=== PATIENT | male | born 1980 ===

== ENCOUNTER 2017-06-11 19:08 | Emergency (ER) | payer OTHER ==
[2017-06-11 19:27] VITALS: BP 111/58; PULSE 87; RESP 18; TEMP 101.9; O2SAT 98
--- NOTE | 2017-06-11 21:07 | ED PDOC ---
HPI: Fever Fever Onset Was: 06/11/17 (x1 day) Additional Comments: 36 year old male presents to the emergency department complaining of fever for one day. Patient also complains of sore throat, mild cough, body aches, and an associated headache. Denies chest pain, difficulty breathing, vomiting or diarrhea. PMD: Dr. Campos Santana Past Medical History Reviewed: Historical Data, Nursing Documentation, Vital Signs Vital Signs: Last Vital Signs Temp 101.9 F H 06/11/17 21:17 Pulse 87 06/11/17 19:24 Resp 18 06/11/17 19:24 BP 111/58 L 06/11/17 19:24 Pulse Ox 98 06/11/17 23:40 - Medical History PMH: No Chronic Diseases - Surgical History Surgical History: No Surg Hx - Family History Family History: States: No Known Family Hx - Social History Current smoker - smoking cessation education provided: No Alcohol: None Drugs: Denies - Home Medications Home Medications: Ambulatory Orders Medication Instructions Recorded Tobramycin [Tobrex] 5 ml TOP QID #1 bottle 04/16/16 Azithromycin [Z-Kale] 250 mg PO ASDIR #6 tab 06/11/17 - Allergies Allergies/Adverse Reactions: Allergies Allergy/AdvReac Type Severity Reaction Status Date / Time No Known Allergies Allergy Verified 04/16/16 17:21 Review of Systems ROS Statement: Except As Marked, All Systems Reviewed And Found Negative Constitutional: Positive for: Fever, Other (body aches) ENT: Positive for: Throat Pain Cardiovascular: Negative for: Chest Pain Respiratory: Positive for: Cough (mild). Negative for: Shortness of Breath Gastrointestinal: Negative for: Vomiting, Diarrhea Neurological: Positive for: Headache Physical Exam - Reviewed Nursing Documentation Reviewed: Yes Vital Signs Reviewed: Yes - Physical Exam Appears: Positive for: Well, Non-toxic, No Acute Distress Head Exam: Positive for: ATRAUMATIC, NORMAL INSPECTION, NORMOCEPHALIC Skin: Positive for: Normal Color, Warm, Dry. Negative for: Rash Eye Exam: Positive for: EOMI, Normal appearance, PERRL ENT: Positive for: Other (Erythema of tonsils ) Neck: Positive for: Normal, Painless ROM, Supple (no lymphadenopathy) Cardiovascular/Chest: Positive for: Regular Rate, Rhythm. Negative for: Murmur Respiratory: Positive for: Normal Breath Sounds. Negative for: Accessory Muscle Use, Respiratory Distress Gastrointestinal/Abdominal: Positive for: Normal Exam, Bowel Sounds, Soft. Negative for: Tenderness Back: Positive for: Normal Inspection. Negative for: Vertebral Tenderness, Decreased ROM Extremity: Positive for: Normal ROM. Negative for: Pedal Edema, Calf Tenderness Neurologic/Psych: Positive for: Alert, Oriented - ECG O2 Sat by Pulse Oximetry: 98 (RA) Pulse Ox Interpretation: Normal Medical Decision Making Medical Decision Making: Impression: Fever and tonsillitis Differential: Possible strep, influenza Time: 20:57 Initial Plan: --Toradol 15 mg IM --Tylenol 650 mg PO --Influenza A B --Rapid Strep --Throat culture --Reevaluation Time: 21:22 Lab Results Reviewed: Negative for flu and strep Time: :54 Ordered chest x-ray and urine dip. Scribe Attestation: Documented by Kia Jaramillo, acting as a scribe for Oscar Shelton MD Provider Scribe Attestation: All medical record entries made by the Scribe were at my direction and personally dictated by me. I have reviewed the chart and agree that the record accurately reflects my personal performance of the history, physical exam, medical decision making, and the department course for this patient. I have also personally directed, reviewed, and agree with the discharge instructions and disposition. Disposition - Clinical Impression Clinical Impression: Fever in adult, Influenza-like symptoms, Pneumonia - Patient ED Disposition Is Patient to be Admitted: No Doctor Will See Patient In The: Office Counseled Patient/Family Regarding: Studies Performed, Diagnosis, Need For Followup - Disposition Referrals: [facility] [Outside] Disposition: Routine/Home Disposition Time: 23:41 Condition: GOOD Additional Instructions: Take your medications as instructed. Follow up with your PCP in 2-3 days. Prescriptions: Azithromycin [Z-Kale] 250 mg PO ASDIR #6 tab Instructions: Community Acquired Pneumonia (ED) Curb-65 Severity Score - CURB-65 Severity Score Confusion: No Bun >19mg/dl (>7mmol/L): No Respiratory Rate greater than/equal to 30: No Systolic BP <90 or Diastolic BP less than/equal 60mmHg: No Age >64: No Curb-65 Score: 0 Percentage 30-day mortality: 0.6%
--- NOTE | 2017-06-12 08:52 | RAD ---
HISTORY: fever cough COMPARISON: Portable chest 04/02/2015. TECHNIQUE: Chest PA and lateral FINDINGS: LUNGS: Interval trace patchy density is question at the right lower lobe suspicious for interval no bony or possible atelectasis. Remaining lung langford are clear otherwise, bilaterally. PLEURA: No significant pleural effusion identified. No pneumothorax apparent. CARDIOVASCULAR: Normal. OSSEOUS STRUCTURES: No significant abnormalities. VISUALIZED UPPER ABDOMEN: Normal. OTHER FINDINGS: None. IMPRESSION: Borderline right lower lobe infiltrate.
== END 2017-06-12 00:15 | disposition home or self-care (01) ==
LOC: H.ER 19:08
DX: J18.9 Pneumonia, unspecified organism (principal)
CPT/HCPCS: 71046; 87070; 87430; 87804; 96372; 99282; J1885

== ENCOUNTER 2017-07-28 17:45 | Emergency (ER) | payer OTHER ==
[2017-07-28 17:52] VITALS: BP 126/75; PULSE 69; RESP 16; TEMP 97.3; O2SAT 99
--- NOTE | 2017-07-28 19:54 | ED PDOC ---
Lower Extremity Pain/Injury Time Seen by Provider: 07/28/17 18:14 Chief Complaint (Nursing): Lower Extremity Problem/Injury Chief Complaint (Provider): Right toe injury History Per: Patient History/Exam Limitations: no limitations Onset/Duration Of Symptoms: Hrs (today) Current Symptoms Are (Timing): Still Present Additional Complaint(s): Maxwell Sellers is a 36 year old male, with no significant past medical history, who presents to the emergency department for a right great toe injury onset today. Patient reports a headboard fell on his right great toe. He denies any other injuries or medical complaints. Pt states that after taking motrin the pain is improved. PMD: Campos Santana Past Medical History Reviewed: Historical Data, Nursing Documentation, Vital Signs Vital Signs: Last Vital Signs Temp 97.3 F L 07/28/17 17:50 Pulse 69 07/28/17 17:50 Resp 16 07/28/17 17:50 BP 126/75 07/28/17 17:50 Pulse Ox 99 07/28/17 17:50 - Medical History PMH: No Chronic Diseases - Surgical History Surgical History: No Surg Hx - Family History Family History: States: Unknown Family Hx - Social History Current smoker - smoking cessation education provided: No Alcohol: None Drugs: Denies - Home Medications Home Medications: Ambulatory Orders Medication Instructions Recorded Tobramycin [Tobrex] 5 ml TOP QID #1 bottle 04/16/16 Azithromycin [Z-Kale] 250 mg PO ASDIR #6 tab 06/11/17 traMADol [Ultram] 50 mg PO Q6H PRN #15 tab 07/28/17 - Allergies Allergies/Adverse Reactions: Allergies Allergy/AdvReac Type Severity Reaction Status Date / Time No Known Allergies Allergy Verified 04/16/16 17:21 Review of Systems ROS Statement: Except As Marked, All Systems Reviewed And Found Negative Musculoskeletal: Positive for: Foot Pain (right great toe) Physical Exam - Reviewed Nursing Documentation Reviewed: Yes Vital Signs Reviewed: Yes - Physical Exam Appears: Positive for: Well, Non-toxic, No Acute Distress Head Exam: Positive for: ATRAUMATIC, NORMAL INSPECTION, NORMOCEPHALIC Skin: Positive for: Normal Color, Warm, Dry Eye Exam: Positive for: Normal appearance Neck: Positive for: Painless ROM Respiratory: Negative for: Respiratory Distress Extremity: Positive for: Tenderness (to right great toe distally with ecchymosis. ). Negative for: Pedal Edema, Calf Tenderness, Deformity, Swelling Neurologic/Psych: Positive for: Alert, Oriented - ECG O2 Sat by Pulse Oximetry: 99 (RA) Pulse Ox Interpretation: Normal Medical Decision Making Medical Decision Making: Initial Impression: right great toe injury Initial Plan: --Foot right 3 views routine [RAD] --Reevaluation Toes angelic taped and patient given crutches. Non-weight bearing. ~ Scribe Attestation: Documented by Ruddy Maciel, acting as a scribe for Viktoria Guadalupe PA-C. Provider Scribe Attestation: All medical record entries made by the Scribe were at my direction and personally dictated by me. I have reviewed the chart and agree that the record accurately reflects my personal performance of the history, physical exam, medical decision making, and the department course for this patient. I have also personally directed, reviewed, and agree with the discharge instructions and disposition. Disposition - Clinical Impression Clinical Impression: Fractured great toe - Disposition Referrals: Rocky Hilliard MD [Staff Provider] - Disposition Time: 20:27 Condition: STABLE Prescriptions: traMADol [Ultram] 50 mg PO Q6H PRN #15 tab PRN Reason: Pain Instructions: Toe Fracture (DC) Forms: [employer] (Maltese)
--- NOTE | 2017-07-29 10:01 | RAD ---
PROCEDURE: Right Foot Radiographs. HISTORY: great toe injury, crush COMPARISON: None. FINDINGS: BONES: Comminuted fracture of the distal phalanx right great toe. Fracture line appears to extend into the joint space margin. Surrounding soft tissue swelling. JOINTS: Normal. SOFT TISSUES: Normal. OTHER FINDINGS: None. IMPRESSION: Comminuted intra-articular fracture distal phalanx right great the toe with mild surrounding soft tissue swelling.
== END 2017-07-28 20:57 | disposition home or self-care (01) ==
LOC: H.ER 17:45
DX: S92.411A Displaced fracture of proximal phalanx of right great toe, initial encounter for closed fracture (principal); W22.8XXA Striking against or struck by other objects, initial encounter; Y92.003 Bedroom of unspecified non-institutional (private) residence as the place of occurrence of the external cause

== ENCOUNTER 2017-12-07 20:12 | Emergency (ER) | payer SELFPAY ==
[2017-12-07 20:48] VITALS: BP 113/77; PULSE 61; RESP 16; TEMP 97.9; O2SAT 100
--- NOTE | 2017-12-07 20:54 | ED PDOC ---
Upper Extremity Pain/Injury Time Seen by Provider: 12/07/17 20:48 Chief Complaint (Nursing): Finger,Hand,&Wrist Chief Complaint (Provider): Right Wrist Laceration History Per: Patient, [employer] (Patient has friend at bedside translating for him in Bel[place]ian) Current Symptoms Are (Timing): Still Present Additional Complaint(s): 37 year old right hand dominant male presents to the emergency department for evaluation of a laceration to his right wrist. As per patient's friend, a lamp fell on top of patient's wrist around 11:00 this morning. Patient is not sure of last tetanus. He has mild pain to affected area with no numbness or tingling. PMD: Jagjit Alvarenga Past Medical History Reviewed: Historical Data, Nursing Documentation, Vital Signs Vital Signs: Last Vital Signs Temp 97.9 F 12/07/17 20:44 Pulse 61 12/07/17 20:44 Resp 16 12/07/17 20:44 BP 113/77 12/07/17 20:44 Pulse Ox 100 12/07/17 20:44 - Medical History PMH: No Chronic Diseases - Surgical History Surgical History: No Surg Hx - Family History Family History: States: No Known Family Hx - Living Arrangements Living Arrangements: With Family - Social History Current smoker - smoking cessation education provided: No Alcohol: None Drugs: Denies - Immunization History Hx Tetanus Toxoid Vaccination: No (not sure of last booster) - Home Medications Home Medications: Ambulatory Orders Medication Instructions Recorded Tobramycin [Tobrex] 5 ml TOP QID #1 bottle 04/16/16 Azithromycin [Z-Kale] 250 mg PO ASDIR #6 tab 06/11/17 traMADol [Ultram] 50 mg PO Q6H PRN #15 tab 07/28/17 - Allergies Allergies/Adverse Reactions: Allergies Allergy/AdvReac Type Severity Reaction Status Date / Time No Known Allergies Allergy Verified 12/07/17 20:44 Review of Systems ROS Statement: Except As Marked, All Systems Reviewed And Found Negative Skin: Positive for: Other (laceration to right wrist) Physical Exam - Reviewed Nursing Documentation Reviewed: Yes Vital Signs Reviewed: Yes - Physical Exam Appears: Positive for: Well, Non-toxic, No Acute Distress Skin: Positive for: Normal Color. Negative for: Rash Extremity: Positive for: Normal ROM (to right wrist and all digits of right hand ), Other (1 cm laceration to dorsal aspect of right wrist, no active bleeding, very superficial, N/V intact) Neurologic/Psych: Positive for: Alert, Oriented - ECG O2 Sat by Pulse Oximetry: 100 (RA) Pulse Ox Interpretation: Normal Medical Decision Making Medical Decision Making: Time: 20:55 Initial Impression: 37 year old male with a right wrist laceration Initial Plan: --Tetanus booster Wound is superficial, there is no indication for suture placement. Wound was cleansed with normal saline, bacitracin and bandage applied. Wound care instructions given. Scribe Attestation: Documented by Consuelo Culver, acting as a scribe for Kelly Strong PA-C. Provider Scribe Attestation: All medical record entries made by the Scribe were at my direction and personally dictated by me. I have reviewed the chart and agree that the record accurately reflects my personal performance of the history, physical exam, medical decision making, and the department course for this patient. I have also personally directed, reviewed, and agree with the discharge instructions and disposition. Disposition - Clinical Impression Clinical Impression: Superficial laceration of skin, Requires a booster tetanus - Patient ED Disposition Is Patient to be Admitted: No Counseled Patient/Family Regarding: Diagnosis, Need For Followup - Disposition Referrals: [facility] [Outside] Disposition: Routine/Home Disposition Time: 21:27 Condition: STABLE Additional Instructions: Keep wound clean and dry. Wash daily with soap and water and apply Neosporin once per day. [id number] Tylenol or Motrin for pain as needed. Follow-up with clinic or primary doctor in 2-3 days. Instructions: Taking Care of Cuts and Scrapes, Diphtheria and Tetanus Toxoids, and Acellular Pertussis Vaccine Forms: [employer] (Belarusian) Print Language: COMORAN
[2017-12-07] MEDS ORDERED: Tdap Vaccine 0.5 ml Vial (10-64 yrs) IM ONE ×2 (20:55→21:11)
== END 2017-12-07 21:46 | disposition home or self-care (01) ==
LOC: H.ER 20:12
DX: S61.521A Laceration with foreign body of right wrist, initial encounter (principal); W25.XXXA Contact with sharp glass, initial encounter; Y92.89 Other specified places as the place of occurrence of the external cause

== ENCOUNTER 2018-08-25 00:31 | Emergency (ER) | payer SELFPAY ==
[2018-08-25] MEDS ORDERED: Sodium Chloride 0.9% 1,000 ML IV STA ×3 (01:09→03:40)
[2018-08-25] MEDS ORDERED: DiphenhydrAMINE 50 mg/ml Inj IV STA ×2 (01:17→03:57)
[2018-08-25] MEDS ORDERED: DiphenhydrAMINE 50 mg/ml Inj ONE (01:57)
[2018-08-25 02:07] LABS: BASO % 0.2 % (0.0-2.0); EOS % 0.1 % (0.0-4.0); HEMOGLOBIN 14.8 g/dL (12.0-18.0); LYMPH % 11.5 % (20.0-40.0); MEAN CORPUSCULAR HEMOGLOBIN 30.7 pg (27.0-31.0); MEAN CORPUSCULAR HGB CONC 34.1 g/dL (33.0-37.0); MEAN PLATELET VOLUME 9.2 fl (7.2-11.7); MONO # 0.4 K/uL (0.0-0.8); MONO % 4.2 % (0.0-10.0); NEUT # 7.5 K/uL (1.8-7.0); RBC 4.81 Mil/uL (4.40-5.90); RED CELL DISTRIBUTION WIDTH 12.6 % (11.5-14.5); WHITE BLOOD COUNT 8.9 K/uL (4.8-10.8)
[2018-08-25 02:13] LABS: ALB/GLOB RATIO 1.3 (1.0-2.1); ALBUMIN 4.3 g/dL (3.5-5.0); ALT/SGPT 39 U/L (21-72); AST/SGOT 31 U/L (17-59); BLOOD UREA NITROGEN 17 mg/dl (9-20); CALCIUM 9.2 mg/dL (8.4-10.2); GFR NON-AFRICAN AMERICAN > 60
--- NOTE | 2018-08-25 02:19 | ED PDOC ---
HPI: General Adult Time Seen by Provider: 08/25/18 01:07 Chief Complaint (Nursing): Fever Chief Complaint (Provider): Fever History Per: Patient History/Exam Limitations: no limitations Onset/Duration Of Symptoms: Days (x 1) Have you had recent travel within the past 21 days to any of the following countries: [place], [place], [place] or [place]?: No Current Symptoms Are (Timing): Still Present Additional Complaint(s): 37 year old male with no significant medical history presents to the ED for evaluation of a fever and rash for one day. Patient reports he awoke this morning with a fever. He took Tylenol with some relief. Later that afternoon, patient developed a diffuse, pruritic rash with redness and swelling in multiple parts of his body, including his torso and extremities. Patient denies contact with known allergen. He was seen in this ED three years ago for similar symptoms and was discharged after a normal workup. Denies sore throat, cough, runny nose, urinary symptoms, vomiting and diarrhea. PMD: Dr. Santana Past Medical History Reviewed: Historical Data, Nursing Documentation, Vital Signs Vital Signs: Last Vital Signs Temp 100.3 F H 08/25/18 01:48 Pulse 104 H 08/25/18 00:52 Resp 16 08/25/18 00:52 BP 90/52 L 08/25/18 00:52 Pulse Ox 98 08/25/18 00:52 - Medical History PMH: No Chronic Diseases - Surgical History Surgical History: No Surg Hx - Family History Family History: States: Unknown Family Hx - Immunization History Hx Tetanus Toxoid Vaccination: No (not sure of last booster) - Home Medications Home Medications: Ambulatory Orders Medication Instructions Recorded Tobramycin [Tobrex] 5 ml TOP QID #1 bottle 04/16/16 Azithromycin [Z-Kale] 250 mg PO ASDIR #6 tab 06/11/17 traMADol [Ultram] 50 mg PO Q6H PRN #15 tab 07/28/17 Cetirizine HCl [Zyrtec] 10 mg PO QAM #10 capsule 08/25/18 Famotidine [Pepcid] 20 mg PO Q12 #14 tab 08/25/18 Methylprednisolone [Medrol Dosepak] 4 mg PO ASDIR #1 pkg 08/25/18 - Allergies Allergies/Adverse Reactions: Allergies Allergy/AdvReac Type Severity Reaction Status Date / Time No Known Allergies Allergy Verified 08/25/18 00:52 Review of Systems ROS Statement: Except As Marked, All Systems Reviewed And Found Negative Constitutional: Positive for: Fever ENT: Negative for: Nose Discharge, Throat Pain Respiratory: Negative for: Cough Gastrointestinal: Negative for: Nausea, Vomiting Genitourinary Male: Negative for: Dysuria, Frequency, Incontinence, Hematuria Skin: Positive for: Rash Physical Exam - Reviewed Nursing Documentation Reviewed: Yes Vital Signs Reviewed: Yes - Physical Exam Appears: Positive for: Uncomfortable Head Exam: Positive for: ATRAUMATIC, NORMAL INSPECTION, NORMOCEPHALIC Skin: Positive for: Warm (febrile), Dry, Rash (diffuse, coalescing, erythematous, target-like rash) Eye Exam: Positive for: EOMI, Normal appearance, PERRL ENT: Positive for: Normal ENT Inspection. Negative for: Other (involvement of lips, tongue or oral mucosa with rash) Neck: Positive for: Normal, Painless ROM, Supple Cardiovascular/Chest: Positive for: Tachycardia (with regular rhythm). Negative for: Murmur Respiratory: Positive for: Normal Breath Sounds. Negative for: Respiratory Distress Gastrointestinal/Abdominal: Positive for: Normal Exam, Soft. Negative for: Tenderness Back: Positive for: Normal Inspection. Negative for: L CVA Tenderness, R CVA Tenderness Extremity: Positive for: Normal ROM (x 4). Negative for: Deformity Neurological/Psych: Positive for: Awake, Alert, Normal Tone, Oriented (x 3). Negative for: Motor/Sensory Deficits - Laboratory Results Result Diagrams: 08/25/18 01:50 08/25/18 01:50 - ECG O2 Sat by Pulse Oximetry: 98 (RA) Pulse Ox Interpretation: Normal Medical Decision Making Medical Decision Makin:08 Impression: 37 year old male with target-like rash and febrile illness Initial Plan: --CBC --CMP --ESR --Urine dip --UA --Lactic acid --Benadryl 50 mg IV --Solu-medrol 125 mg IVP --NS IV 1,000 mls --Tylenol 975 mg PO --Infectious [place] --Influenza AB 06:42 Patient responded well to medications. Shows marked improvement in fever and rash. He is stable for discharge. Return precautions provided. Diagnosis erythema multiforme minor. Scribe Attestation: Documented by Leonela Rolle, acting as a scribe Cholo Overton MD Provider Scribe Attestation: All medical record entries made by the Scribe were at my direction and personally dictated by me. I have reviewed the chart and agree that the record accurately reflects my personal performance of the history, physical exam, medical decision making, and the department course for this patient. I have also personally directed, reviewed, and agree with the discharge instructions and disposition Disposition - Clinical Impression Clinical Impression: Erythema multiforme minor, Viral syndrome - Patient ED Disposition Is Patient to be Admitted: No - Disposition Disposition: Routine/Home Disposition Time: 06:42 Condition: STABLE Prescriptions: Cetirizine HCl [Zyrtec] 10 mg PO QAM #10 capsule Famotidine [Pepcid] 20 mg PO Q12 #14 tab Methylprednisolone [Medrol Dosepak] 4 mg PO ASDIR #1 pkg Instructions: Erythema Multiforme, Viral Syndrome (DC) Forms: [employer] (Japanese) Print Language: [place]UVALU[place]
[2018-08-25 04:41] LABS: URINE BILIRUBIN NEGATIVE (NEGATIVE); URINE BLOOD NEGATIVE (NEGATIVE); URINE CLARITY SLIGHTY-CLOUDY (Clear); URINE COLOR YELLOW (YELLOW); URINE GLUCOSE (UA) NEG (NEGATIVE); URINE LEUKOCYTE ESTERASE NEG Leu/uL (Negative); URINE PROTEIN NEGATIVE (NEGATIVE)
[2018-08-25 05:48] VITALS: RESP 18
[2018-08-25 06:37] VITALS: BP 118/56; PULSE 94; TEMP 99.7
[2018-08-25 06:45] VITALS: O2SAT 98
== END 2018-08-25 06:50 | disposition home or self-care (01) ==
LOC: H.ER 00:31
DX: L51.9 Erythema multiforme, unspecified (principal); B34.9 Viral infection, unspecified; R00.0 Tachycardia, unspecified
CPT/HCPCS: 80053; 81003; 83605; 85025; 85651; 86308; 87040; 87804; 96374; 99285; J1200; J2930; J7030